=== PATIENT | male | born 1995 | race Caucasian/White ===

== ENCOUNTER 2018-01-23 04:32 | Emergency (ER) | payer OTHER ==
[~2018-01-23] VITALS: Ht 175.3 cm; Wt 125.2 kg
[2018-01-23 04:34] VITALS: BP 126/73
--- NOTE | 2018-01-23 04:43 | NUR ---
PT AMBULATED TO BED 4 WITH VSS.
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
[2018-01-23] MEDS ORDERED: DICYCLOMINE HCL LIQUID 20 MG, ALUMINUM HYD/MAG/SIMETHICONE 30 ML, LIDOCAINE VISCOUS 2% ... PO ONE ×3 (05:00)
[2018-01-23 05:53] VITALS: BP 126/73
--- NOTE | 2018-01-23 05:53 | NUR ---
Patient discharged with v/s stable. Written and verbal after care instructions given and explained. Patient alert, oriented and verbalized understanding of instructions. Ambulatory with steady gait. All questions addressed prior to discharge. ID band removed. Patient advised to follow up with PMD. Rx of MYLANTA WAS given. Patient educated on indication of medication including possible reaction and side effects. Opportunity to ask questions provided and answered.
== END 2018-01-23 05:53 | disposition home or self-care (01) ==
LOC: MED 04:32
DX: R10.10 Upper abdominal pain, unspecified (principal); R11.0 Nausea
CPT/HCPCS: 99282

== ENCOUNTER 2018-08-24 11:27 | Emergency (ER) | payer OTHER ==
[~2018-08-24] VITALS: Ht 177.8 cm; Wt 90.7 kg
[2018-08-24 11:50] VITALS: BP 133/76
--- NOTE | 2018-08-24 11:50 | NUR ---
PATIENT AMBULATED TO ER BED 8.
[2018-08-24] MEDS ORDERED: KETOROLAC 30 MG/ML VIAL IM ONE (12:35)
--- NOTE | 2018-08-24 13:44 | NUR ---
report given to katelyn for continuity of care
[2018-08-24 14:27] VITALS: BP 128/72
--- NOTE | 2018-08-24 14:28 | NUR ---
Patient discharged with v/s stable. Written and verbal after care instructions given and explained. Patient alert, oriented and verbalized understanding of instructions. Ambulatory with steady gait. All questions addressed prior to discharge. ID band removed. Patient advised to follow up with PMD. Rx of IBU,NORCO given. Patient educated on indication of medication including possible reaction and side effects. Opportunity to ask questions provided and answered.
== END 2018-08-24 14:28 | disposition home or self-care (01) ==
LOC: MED 11:27
DX: S39.92XA Unspecified injury of lower back, initial encounter (principal); W01.0XXA Fall on same level from slipping, tripping and stumbling without subsequent striking against object, initial encounter; Y93.89 Activity, other specified; Y92.89 Other specified places as the place of occurrence of the external cause; Y99.8 Other external cause status
CPT/HCPCS: 72220; 96372; 99283; J1885

== ENCOUNTER 2019-02-19 16:36 | Emergency (ER) | payer OTHER ==
[~2019-02-19] VITALS: Ht 177.8 cm; Wt 108.9 kg
[2019-02-19 16:46] VITALS: BP 120/72
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
--- NOTE | 2019-02-19 17:52 | NUR ---
PT TAKEN TO RAD VIA W/C
--- NOTE | 2019-02-19 17:54 | NUR ---
pt being taken to xray
[2019-02-19] MEDS: KETOROLAC 60 MG/2 ML VIAL IM ONE (18:06)
[2019-02-19 19:12] VITALS: BP 120/72
--- NOTE | 2019-02-19 19:12 | NUR ---
Patient discharged with v/s stable. Written and verbal after care instructions given and explained. Patient alert, oriented and verbalized understanding of instructions. Ambulatory with steady gait. All questions addressed prior to discharge. ID band removed. Patient advised to follow up with PMD. Rx of norco, naprosyn given. Patient educated on indication of medication including possible reaction and side effects. Opportunity to ask questions provided and answered.
== END 2019-02-19 19:12 | disposition home or self-care (01) ==
LOC: MED 16:36
DX: S30.811A Abrasion of abdominal wall, initial encounter (principal); R07.89 Other chest pain; M54.5 Low back pain; M54.2 Cervicalgia; F12.10 Cannabis abuse, uncomplicated; M54.6 Pain in thoracic spine; W22.8XXA Striking against or struck by other objects, initial encounter; Y93.89 Activity, other specified; Y92.89 Other specified places as the place of occurrence of the external cause; Y99.8 Other external cause status
CPT/HCPCS: 71046; 90471; 90715; 96372; 99283; J1885

== ENCOUNTER 2019-12-22 13:47 | Emergency (ER) | payer OTHER, SELFPAY ==
[~2019-12-22] VITALS: Ht 177.8 cm; Wt 120.2 kg
[2019-12-22 14:00] VITALS: BP 147/93
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
[2019-12-22] MEDS ORDERED: ACETAMINOPHEN EXTRA STRENGTH 500 MG TAB PO ONE (14:15)
--- NOTE | 2019-12-22 14:25 | NUR ---
PT TAKEN TO X RAY
--- NOTE | 2019-12-22 14:25 | NUR ---
COVID SWAB DONE.
--- NOTE | 2019-12-22 15:04 | NUR ---
Patient discharged with v/s stable. Written and verbal after care instructions given and explained. Patient alert, oriented and verbalized understanding of instructions. Ambulatory with steady gait. All questions addressed prior to discharge. ID band removed. Patient advised to follow up with PMD. Rx of NAPROSYN, GUAIATUSSIN given. Patient educated on indication of medication including possible reaction and side effects. Opportunity to ask questions provided and answered.
[2019-12-22 15:24] VITALS: BP 137/88
--- NOTE | 2019-12-23 11:49 | NUR ---
POSITIVE COVID REPORT RECEIVED FROM LAB. INFECTION CONTROL DEP WILL CONTACT PT SHORTLY.
== END 2019-12-22 15:04 | disposition home or self-care (01) ==
LOC: MED 13:47 → EEVIPCON 13:47 → MED 15:04
DX: R50.9 Fever, unspecified (principal); Z20.828 Contact with and (suspected) exposure to other viral communicable diseases
CPT/HCPCS: 71045; 99284; Q0092; U0003